=== PATIENT | female | born 1960 | race Caucasian/White ===

== ENCOUNTER 2020-10-26 15:25 | Outpatient (CLI) | payer OTHER, SELFPAY ==
--- NOTE | ~2020-10-26 | XR_ITS ---
EXAMINATION: XR wrist LT min 3V DATE: 10/26/2020 15:51 INDICATION: Left wrist pain TECHNIQUE: Posteroanterior, ulnar deviation, oblique, and lateral views of the left wrist were obtain ed. COMPARISON: None available FINDINGS: There is mild osteoarthritis of the triscaphe, radiocarpal, and first carpometacarpal joint s. No fracture is identified. Bone alignment is normal. The soft tissues are unremarkable. IMPRESSION: 1. Mild osteoarthritis without acute findings. Reviewed, dictated and finalized at location A. L SHARPENER
== END 2020-10-26 15:26 | disposition home or self-care (01) ==
LOC: ANHIMG 15:34
DX: M19.032 Primary osteoarthritis, left wrist (principal)
CPT/HCPCS: 73110